=== PATIENT | female | born 1970 | race Caucasian/White ===

== ENCOUNTER → 2017-05-15 | Outpatient (CLI) | payer MEDICAID | LOC: CIMAGING 15:05 | PROVIDERS: ATTEND Family Medicine | DX: N95.1 Menopausal and female climacteric states (principal); D25.1 Intramural leiomyoma of uterus; K58.0 Irritable bowel syndrome with diarrhea; D50.0 Iron deficiency anemia secondary to blood loss (chronic); F32.9 Major depressive disorder, single episode, unspecified | CPT/HCPCS: 76856-PO ==

== ENCOUNTER 2017-08-07 07:00 | Day surgery (SDC) | payer MEDICAID ==
[2017-08-07] MEDS ORDERED: LIDOCAINE 1% 2 ML INJ ID PRN (07:25)
[2017-08-07] MEDS ORDERED: LR 1,000 ML IV ONE (07:25)
[2017-08-07] MEDS ORDERED: LIDOCAINE 1% 2 ML INJ ONE (07:35)
[2017-08-07] MEDS ORDERED: BUPIVACAINE 0.25% 30 ML SDV ONE (07:48)
[2017-08-07] MEDS ORDERED: OPIUM/BELLADONNA ALKALO SUPP PR ONE (07:48)
[2017-08-07] MEDS ORDERED: SILVER NITRATE APPLICATOR 1 APPL TP ONE (07:48)
[2017-08-07] MEDS ORDERED: MIDAZOLAM 2 MG/2 ML VIAL IVP ONE (08:00)
--- NOTE | 2017-08-07 08:02 | PDANEPAE ---
ANE History of Present Illness Patient presents for diagnostic hysteroscopy, ANE Past Medical History - Cardiovascular History Hx Hypertension: No Hx Arrhythmias: No Hx Chest Pain: No Hx Coronary Artery / Peripheral Vascular Disease: No Hx CHF / Valvular Disease: No Hx Palpitations: No - Pulmonary History Hx COPD: No Hx Asthma/Reactive Airway Disease: No Hx Recent Upper Respiratory Infection: No Hx Oxygen in Use at Home: No Hx Sleep Apnea: No Sleep Apnea Screening Result - Last Documented: Negative - Neurologic History Hx Cerebrovascular Accident: No Hx Seizures: No Hx Dementia: No - Endocrine History Hx Diabetes: No - Renal History Hx Renal Disorders: No - Liver History Hx Hepatic Disorders: No - Neurological & Psychiatric Hx Hx Neurological and Psychiatric Disorders: Yes Neurological / Psychiatric History Comment: depression - Cancer History Hx Cancer: No - Congenital Disorder History Hx Congenital Disorders: No - GI History Hx Gastrointestinal Disorders: Yes Gastrointestinal History Comment: IBS with diarrhea - Other Health History Other Health History: none - Chronic Pain History Chronic Pain: No - Surgical History Prior Surgeries: none ANE Review of Systems Review of Systems: - Exercise capacity METS (RN): 4 METS ANE Patient History - Allergies Allergies/Adverse Reactions: Sulfa (Sulfonamide Antibiotics) Allergy (Intermediate, Verified 07/31/17 16:39) Rash - Home Medications Home medications: home medication list seen and reviewed Home Medications: Citalopram [CeleXA 20 MG] 08/29/11 [Last Taken 08/06/17] Depo-Provera 150 mg/ml (*) INJ 08/07/17 [Last Taken 07/24/17] traMADol PRN 08/07/17 [Last Taken 07/24/17] - NPO status NPO Status: no food or drink >8 hours NPO Since - Liquids (Date): 08/06/17 NPO Since - Liquids (Time): 20:30 NPO Since - Solids (Date): 08/06/17 NPO Since - Solids (Time): 20:30 - Smoking Hx Smoking Status: Never smoked - Family Anes Hx Family Hx Anesthesia Complications: none ANE Labs/Vital Signs - Vital Signs Blood Pressure: 122/79 Heart Rate: 74 Respiratory Rate: 18 O2 Sat (%): 95 Height: 154.94 cm Weight: 79.832 kg ANE Physical Exam - Airway Neck exam: FROM, increased neck circumference Mallampati Score: Class 2 - Pulmonary Pulmonary: no respiratory distress - Cardiovascular Cardiovascular: regular rate and rhythym - ASA Status ASA Status: II ANE Anesthesia Plan Anesthesia Plan: general endotracheal anesthesia (rba discussed)
[2017-08-07] MEDS ORDERED: fentaNYL 100 MCG/2 ML INJ ONE ×2 (08:05→09:48)
[2017-08-07] MEDS ORDERED: PROPOFOL 200 MG/20 ML VIAL ONE (08:05)
[2017-08-07] MEDS ORDERED: PROPOFOL/EMULSION 500 MG/50 ML BOTTLE IV ONE (08:05)
--- NOTE | 2017-08-07 08:21 | PDGENHP ---
History & Physical Chief Complaint: Menorrhagia, AUB History of Present Illness: 47 yo who saw me in clinic re heavy and increasingly irregular periods. EBX benign. Discussed options and would like HSC with ablation. Pertinent Past, Social, Family History: Non-contributory. Relevant Physical Exam: NAD, RRR, LCTAB. Assessment & Plan Assessment: Diagnostic hysteroscopy, possible polypectomy/endometrial sampling. Kritsan endometrial ablation. - No need for abx. - Routine preop orders. - Home same day. MAY
[2017-08-07] MEDS ORDERED: ONDANSETRON 4 MG/2 ML VIAL ONE (08:45)
[2017-08-07] MEDS ORDERED: DEXAMETHASONE 4 MG/ML VIAL ONE (08:45)
[2017-08-07] MEDS ORDERED: SUGAMMADEX SODIUM 200 MG/2 ML VIAL IVP ONE ×2 (09:19)
[2017-08-07] MEDS ORDERED: HYDROCODONE/APAP 5/325 TAB PO PRN (09:32)
[2017-08-07] MEDS ORDERED: LR 500 ML IV PRN (09:32)
[2017-08-07] MEDS ORDERED: NALOXONE HCL 0.4 MG/ML INJ IVP PRN (09:32)
[2017-08-07] MEDS ORDERED: KETOROLAC 15 MG/1 ML SDV IVP ONE (09:32)
[2017-08-07] MEDS ORDERED: ONDANSETRON 4 MG/2 ML VIAL IVP PRN (09:32)
--- NOTE | 2017-08-07 09:32 | POSTANESTH ---
Post Anesthetic Evaluation Cardiovascular Status: Similar to Pre-Op Cond Respiratory Status: Similar to Pre-op Cond. Level of Consciousness/Mental Status: Alert and Oriented Pain Control: Adequate, Prn Tx Ordered Nausea/Vomiting Control: Adequate, Prn Tx Ordered Complications Possibly Related to Anesthesia: None Noted
--- NOTE | 2017-08-07 09:41 | POSTOPPROG ---
Post Op Note Date of Operation: 08/07/17 Surgeon: Flaquito Wang Computer Systems Designer: None Anesthesia: GET(General Endotracheal) Pre-op Diagnosis: Menorrhagia, abnormal uterine bleeding Post-op Diagnosis: Same Procedure: Diagnostic hysteroscopy, Kristan Endometrial ablation Findings: Normal cavity, no masses or polyps Inf/Abcess present in the surg proc area at time of surgery?: No EBL: Minimal Complications: None - Handpiece did not open/deploey for first treatment cycle, repeated successfully with a new handpiece. Specimen(s): None
--- NOTE | 2017-08-07 09:45 | SUROPNOTE ---
[facility] Operative Report - Surgery Date of Operation: 08/07/17 Surgeon: Flaquito Wang Switch House Operator: None Anesthesia: GET(General Endotracheal) Pre-op Diagnosis: Menorrhagia, abnormal uterine bleeding Post-op Diagnosis: Same Procedure: Diagnostic hysteroscopy, Kristan Endometrial ablation Findings: Normal cavity, no masses or polyps Inf/Abcess present in the surg proc area at time of surgery?: No EBL: Minimal Complications: None - Handpiece did not open/fully deploy for first treatment cycle, repeated successfully with a new handpiece. Specimen(s): None Technique: The patient was taken to the operating room where her identity and planned procedure were confirmed during time-out. The patient was placed under MAC/general anesthesia without issue. When anesthesia was found to be adequate, the patient was prepped and draped in the normal sterile fashion in dorsal lithotomy position in Boy stirrups. No antibiotics were indicated nor given. The patient had voided just prior to OR so straight cath was not necessary. [place] speculum placed in the vagina and anterior lip of the cervix grasped with single-tooth tenaculum. A paracervical block was placed with 5cc of local anesthetic with epi at 4:00 and 8:00 locations at the cervico-vaginal junction - 10cc total. The cervix was carefully serially dilated first to allow uterine sound measurement, then to 6mm to allow TruClear hysteroscope. Dilation proceeded easily with no concerns for injury to the uterus. Scope inserted and findings noted as above. The TruClear device was used to remove any polypoid lesions and sample other surrounding endometrium. The scope was removed and prepared for ablation. A Kailey dilator was then advanced to the inner cervical os to measure the cervical length. The Kristan device was inserted to the fundus. I initially closed the handpiece completely till it clicked, noted that the device was fully deployed within the "green" acceptable aspect of the device, but close to the edge of that green area. I released the clutch on the device bringing the array back in /collapsed, repositioned within the cavity and gripped it closed again with another "click" and noted width now safely within the green. The cavity assessment initiated and passed. Treatment cycle initiated and full 120 seconds completed. When I looked down at the device after the handpiece had not stayed deployed and had return to the collapsed position, and was that way for the entire treatment cycle. That is, not opened/deployed, not an adequate treatment at all. I was able to remove the device from the cavity with ease without doing anything else, suggesting the array was collapsed for the treatment. My suspicion is that the device did not stay in the "clicked" forward locked position though I heard and felt that locking sensation. At this point I elected to get a new handpiece and complete successful procedure with the array fully deployed. This second time the device was inserted, fully clicked/deployed safely in the green, cavity assessment passed and full treatment cycle completed as per usual. The hysteroscope was reinserted following ablation and confirmed uniform burn on all surfaces and no other visible abnormalities/irregularities. The tenaculum was removed from the cervix and the tenaculum sites were found to be hemostatic. Sponge, lap, needle, and instrument counts were announced as as correct. B&O suppository placed at the conclusion of the case. I was scrubbed and present for the entire procedure.
[2017-08-07] MEDS ORDERED: HYDROCODONE/APAP 5/325 TAB ONE (09:48)
[2017-08-07] MEDS: fentaNYL 100 MCG/2 ML INJ IVP PRN ×2 (09:50→10:02)
[2017-08-07 11:52] VITALS: BP 141/92
== END 2017-08-07 11:30 | disposition home or self-care (01) ==
LOC: FSGY 07:00
PROVIDERS: ATTEND Obstetrics & Gynecology
PROC: 0U5B8ZZ Destruction of Endometrium, Via Natural or Artificial Opening Endoscopic (ICD-10-PCS; principal; 2017-08-07 08:15)
DX: N93.9 Abnormal uterine and vaginal bleeding, unspecified (principal); N92.0 Excessive and frequent menstruation with regular cycle
CPT/HCPCS: J0171; J1100; J2250; J2405; J2704; J3010